=== PATIENT | female | born 1960 | race Caucasian/White ===

== ENCOUNTER 2023-12-03 14:09 | Outpatient (OUT) | payer OTHER, SELFPAY ==
--- NOTE | 2023-12-03 | XR_ITS ---
The [address] [address] Patient Name: MIKE HANNON MRN: [id number] date: 1960 Sex: F Assigned Patient Location: Current Patient Location: Accession/Order Number: [id number] Exam Date: 12/03/2023 14:18 Report Date: 12/04/2023 07:13 At the request of: ALFREDA MCCALL Procedure: XR foot LT min 3V PROCEDURE: XR foot LT min 3V COMPARISON: None. HISTORY: LEFT FOOT PAIN FINDINGS: BONES:Subacute complex intra-articular fracture identified at the base of the fifth metatarsal evidenced by bone resorption. Incomplete bony bridging. Moderate enthesopathic spurring of the calcaneus at the Achilles and plantar insertions. SOFT TISSUES:Negative. No visible soft tissue swelling. EFFUSION:None visible. OTHER: Results initiated through operations XR/XR foot LT min 3V IMPRESSION: Subacute complex intra-articular fracture base of the fifth metatarsal Electronically authenticated by: FIONA CANNON Date: 12/04/2023 07:13
== END 2023-12-03 14:10 | disposition home or self-care (01) ==
LOC: EC 14:15
PROVIDERS: PCP Student in an Organized Health Care Education/Training Program; Visit Provider Student in an Organized Health Care Education/Training Program
DX: S92.902A Unspecified fracture of left foot, initial encounter for closed fracture (principal); S92.355A Nondisplaced fracture of fifth metatarsal bone, left foot, initial encounter for closed fracture
CPT/HCPCS: 73630

== ENCOUNTER 2023-12-25 09:04 | Outpatient (OUT) | payer OTHER, SELFPAY ==
--- NOTE | 2023-12-25 | XR_ITS ---
The [address] [address] Patient Name: MIKE HANNON MRN: [id number] date: 1960 Sex: F Assigned Patient Location: Current Patient Location: Accession/Order Number: [id number] Exam Date: 12/25/2023 09:05 Report Date: 12/26/2023 07:59 At the request of: ELADIO JACINTO Procedure: XR foot LT min 3V PROCEDURE: XR foot LT min 3V HISTORY: LEFT FOOT PAIN COMPARISON: XR foot left 12/03/2023 FINDINGS: BONES:Transverse fracture through base of 5th metatarsal with intra-articular extension. Increased density of the fracture line suggesting early bone healing. SOFT TISSUES:No visible soft tissue swelling. EFFUSION:None visible. OTHER: Negative. XR/XR foot LT min 3V IMPRESSION: 1. Changes of early bone healing involving the mildly displaced 5th metatarsal fracture. Electronically authenticated by: CAROLINE VICTORIA Date: 12/26/2023 07:59
--- OUTSIDE RECORDS SUMMARY | 2023-12-25 09:14 | XMS_ITS | CCD ---
Author Organization [facility] Care Team Providers Care C 40A Crew Chief Name Role Phone Cl Mckeon Primary Care Provider [phone] BRENT ENRIQUEZ Referring CL Sandoval Primary Care Unavailable KATHRIN NEWTON Referring CL Sandoval Primary Care Unavailable BRENT ENRIQUEZ Referring CL Sandoval Primary Care Unavailable Allergies Allergy Classification Reported Allergen(s) Allergy Type Date of Onset Reaction(s) Facility HMG-CoA Reductase Inhibitors (statins) (2 sources) atorvastatin Drug Allergy 08-09-2014 Other (See Comments) [facility] Phone: (5 sources) atorvastatin Drug Allergy 08-09-2014 Other (See Comments) [facility] Phone: (5 sources) rosuvastatin Drug Allergy 08-09-2014 Other (See Comments) [facility] Phone: Medications Current Medications Medication Drug Class(es) Dates Sig (Normalized) Sig (Original) enalapril maleate 5 mg oral tablet (6 sources) Angiotensin Converting Enzyme Inhibitor Start: 02-19-2023 take 1 tablet by mouth once daily enalapril (VASOTEC) 5 MG tablet TAKE 1 TABLET BY MOUTH DAILY 90 tablet 3 02/19/2023 Active Start: 02-28-2022 take 1 tablet by ab th once daily enalapril (VASOTEC) 5 MG tablet Take 1 tablet by mouth daily 90 tablet 3 02/28/2022 Active Start: 08-26-2021 take 1 tablet by ab th once daily enalapril (VASOTEC) 5 MG tablet TAKE 1 TABLET BY MOUTH DAILY 90 tablet 1 08/26/2021 Active Start: 10-27-2019 take 1 tablet by ab th once daily enalapril (VASOTEC) 5 MG tablet Take 1 tablet by mouth daily 90 tablet 3 10/27/2019 Active Start: 04-16-2019 take 1 tablet by ab th once daily enalapril (VASOTEC) 5 MG tablet Take 1 tablet by mouth daily 90 tablet 3 04/16/2019 Active hydroCHLOROthiazide 12.5 mg oral capsule (2 sources) Thiazide Diuretic Start: 04-16-2019 take 1 capsule by mouth once daily in the morning hydrochlorothiazide (MICROZIDE) 12.5 MG capsule Take 1 capsule by mouth every morning 90 capsule 3 04/16/2019 Active levothyroxine sodium 0.15 mg oral tablet (6 sources) l-Thyroxine Start: 11-27-2022 take 1 tablet by mouth once daily levothyroxine (SYNTHROID) 150 MCG tablet TAKE 1 TABLET BY MOUTH DAILY 90 tablet 3 11/27/2022 Active Start: 05-20-2021 take 1 tablet by ab th once daily levothyroxine (SYNTHROID) 125 MCG tablet Take 1 tablet by mouth daily 90 tablet 3 05/20/2021 Active Start: 05-25-2020 take 1 tablet by ab th once daily levothyroxine (SYNTHROID) 125 MCG tablet Take 1 tablet by mouth daily 90 tablet 3 05/25/2020 Active Start: 04-26-2020 take 1 tablet by ab th once daily levothyroxine (SYNTHROID) 125 MCG tablet TAKE 1 TABLET BY MOUTH DAILY 30 tablet 0 04/26/2020 Active Start: 10-04-2018 take 1 tablet by ab th once daily levothyroxine (SYNTHROID) 150 MCG tablet Indications: Other specified hypothyroidism Take 1 tablet by mouth Daily 90 tablet 3 10/04/2018 Active rosuvastatin calcium 10 mg oral tablet (1 source) HMG-CoA Reductase Inhibitor Start: 08-28-2022 take 1 tablet by mouth once daily rosuvastatin (CRESTOR) 10 MG tablet Take 1 tablet by mouth daily 90 tablet 3 08/28/2022 Active Problems Active Problems Problem Classification Problem Date Documented Da te Episodic/Chronic Disorders of lipid metabolism (6 sources) Mixed hyperlipidemia; Translations: [Mixed hyperlipidemia] 04-20-2015 Chronic Essential hypertension (6 sources) Essential hypertension; Translations: [Essential (primary) hypertension] Onset: 04-20-2015 04-20-2015 Chronic Other connective tissue disease (3 sources) Pain in left foot; Translations: [Pain in left foot] Onset: 11-22-2023 Episodic Other connective tissue disease (3 sources) Achilles tendinitis, unspecified leg; Translations: [Achilles tendinitis, unspecified leg] Onset: 11-22-2023 Episodic Thyroid disorders (6 sources) Hypothyroidism; Translations: [Other specified hypothyroidism] Onset: 10-04-2018 10-04-2018 Chronic Unclassified (1 source) Cancer cervix screening status; Translations: [Screening for cervical cancer] Past or Other Problems Problem Classification Problem Date Documented Da te Episodic/Chronic Other screening for suspected conditions (not mental disorders or infectious disease) (8 sources) Patient encounter status; Translations: [Encounter for screening mammogram for malignant neoplasm of breast] Onset: 08-18-2016 Resolved: 03-06-2018 Episodic Other skin disorders (1 source) Skin tag; Translations: [Other hypertrophic disorders of the skin] Onset: 06-05-2023 Resolved: 06-18-2023 06-18-2023 Episodic Unclassified (5 sources) Patient encounter status; Translations: [Wellness examination] Onset: 03-17-2016 Resolved: 04-28-2018 04-28-2018 Results Test Name Value Interpretation Reference Range Facility XR FOOT LEFT (2 VIEWS)on XR FOOT LEFT (2 VIEWS) EXAMINATION: TWO XRAY VIEWS OF THE LEFT FOOT 11/22/2023 12:30 pm COMPARISON: None. HISTORY: ORDERING SYSTEM PROVIDED HISTORY: Left foot pain FINDINGS: There is fracture of the base of the 5th metatarsal. The joint spaces are maintained. There is soft tissue swelling. IMPRESSION: Fracture at the base of the 5th metatarsal. Interpreted by: Bhargav Abraham MD Signed by: Bhargav Abraham MD 11/26/23 Final result Normal [facility] JACQUE DIGITAL SCREEN DYLAN Pearce 12-14-2022 [facility] JACQUE DIGITAL SCREEN BILATERAL EXAMINATION: SCREENING DIGITAL BILATERAL MAMMOGRAM WITH TOMOSYNTHESIS, 12/13/2022 TECHNIQUE: Screening mammography was performed with tomosynthesis including MLO and CC views of the bilateral breasts. Computer aided detection was used for the interpretation of this exam. COMPARISON: October HISTORY: Screening. Negative family history of breast cancer. No hormone replacement therapy or breast interventions. FINDINGS: Breasts are composed of predominantly tissue. No skin thickening, nipple contour changes, suspicious calcifications, suspicious masses, areas of architectural distortion or significant interval changes are noted. IMPRESSION: No evidence of malignancy. Screening mammography. BI-RADS 1 BIRADS: BIRADS - CATEGORY 1 Negative, no evidence of malignancy. Normal interval follow-up is recommended in 12 months. OVERALL ASSESSMENT - NEGATIVE A letter of notification will be sent to the patient regarding the results. [employer] recommends annual mammograms for women 40 years and older. Interpreted by: Alta Alfaro MD Signed by: Alta Alfaro MD 12/14/22 Final result Normal [facility] No evidence of malignancy. Screening mammography. BI-RADS 1 BIRADS: BIRADS - CATEGORY 1 Negative, no evidence of malignancy. Normal interval follow-up is recommended in 12 months. OVERALL ASSESSMENT - NEGATIVE A letter of notification will be sent to the patient regarding the results. [employer] recommends annual mammograms for women 40 years and older. [facility] EXAMINATION: SCREENING DIGITAL BILATERAL MAMMOGRAM WITH TOMOSYNTHESIS, 12/13/2022 TECHNIQUE: Screening mammography was performed with tomosynthesis including MLO and CC views of the bilateral breasts. Computer aided detection was used for the interpretation of this exam. COMPARISON: October HISTORY: Screening. Negative family history of breast cancer. No hormone replacement therapy or breast interventions. FINDINGS: Breasts are composed of predominantly tissue. No skin thickening, nipple contour changes, suspicious calcifications, suspicious masses, areas of architectural distortion or significant interval changes are noted. [facility] JACQUE DIGITAL SCREEN BILA TERALOrdered By: Alta Alfaro on 12-14-2022 [facility] Work Phone: [facility] JACQUE DIGITAL SCREEN BILA TERALon 12-13-2022 Radiology Study observation (narrative) [facility] JACQUE DIGITAL SCREEN BILA TERALon 10-10-2021 No evidence of malignancy. Advise annual screening mammography. BI-RADS 1 BIRADS: BIRADS - CATEGORY 1 Negative, no evidence of malignancy. Normal interval follow-up is recommended in 12 months. OVERALL ASSESSMENT - NEGATIVE A letter of notification will be sent to the patient regarding the results. [employer] recommends annual mammograms for women 40 years and older. [facility] EXAMINATION: SCREENING DIGITAL BILATERAL MAMMOGRAM WITH TOMOSYNTHESIS, 10/10/2021 TECHNIQUE: Screening mammography was performed with tomosynthesis including MLO and CC views of the bilateral breasts. Computer aided detection was used for the interpretation of this exam. COMPARISON: 07 October 2020; 21 July 2019 HISTORY: Screening. Positive family history of breast cancer; maternal aunt at age 70. 3 year history of oral contraceptive usage. Negative history of hormonal replacement therapy. No prior breast interventions. FINDINGS: The breasts are composed of scattered fibroglandular densities. No skin thickening, nipple contour changes, malignant type microcalcifications , areas of architectural distortion, or significant interval changes are noted. [facility] Radiology Study observation (narrative) [facility] Phone: [facility] JACQUE DIGITAL SCREEN BILA TERALOrdered By: Alta Alfaro on 10-10-2021 [facility] Phone: [facility] JACQUE DIGITAL SCREEN BILA TERALOrdered By: Kathrin Newton on 10-07-2020 No mammographic evidence of malignancy. BIRADS: BIRADS - CATEGORY 1 Negative. Normal interval follow-up is recommended in 12 months. OVERALL ASSESSMENT - NEGATIVE A letter of notification will be sent to the patient regarding the results. [employer] recommends annual mammograms for women 40 years and older. [facility] Phone: EXAMINATION: SCREENING DIGITAL BILATERAL MAMMOGRAM WITH TOMOSYNTHESIS, 10/07/2020 TECHNIQUE: Screening mammography was performed with tomosynthesis including MLO and CC views of the bilateral breasts. Computer aided detection was used for the interpretation of this exam. COMPARISON: 21 July 2019, 08 May 2018, 15 April 2017, 11 August 2015, 17 June 2014, 02 June 2013 HISTORY: Screening. FINDINGS: There are scattered areas of fibroglandular density. No masses, suspicious calcifications, foci of architectural distortion or significant interval changes are detected. [facility] Phone: Ihsan, [facility] Incoming Radiant Results From [employer] - 10/07/2020 5:08 PM EDT EXAMINATION: SCREENING DIGITAL BILATERAL MAMMOGRAM WITH TOMOSYNTHESIS, 10/07/2020 TECHNIQUE: Screening mammography was performed with tomosynthesis including MLO and CC views of the bilateral breasts. Computer aided detection was used for the interpretation of this exam. COMPARISON: 21 July 2019, 08 May 2018, 15 April 2017, 11 August 2015, 17 June 2014, 02 June 2013 HISTORY: Screening. FINDINGS: There are scattered areas of fibroglandular density. No masses, suspicious calcifications, foci of architectural distortion or significant interval changes are detected. IMPRESSION: No mammographic evidence of malignancy. BIRADS: BIRADS - CATEGORY 1 Negative. Normal interval follow-up is recommended in 12 months. OVERALL ASSESSMENT - NEGATIVE A letter of notification will be sent to the patient regarding the results. [employer] recommends annual mammograms for women 40 years and older. [facility] Phone: TSHon 04-14-2020 TSH Qn 3.31 uIU/mL Normal 0.49-4.67 [facility] Comment on above: Result Comment: Perf ormed at [place] [address] Pathology [employer] [address] [place] [address] CLIA No. [id number] CAP Accreditation No. [id number] Demi Chef: Gailleo Villeda M.D. [facility] METABOLIC PANE WITH GFRon 01-30-2020 Albumin [Mass/Vol] 3.7 g/dL Normal 3.2-5.3 Pathol [employer] Comment on above: Result Comment: [place] [address] CLIA Number [id number] ----- ALK PHOS 57 U/L Normal 39-130 [facility] ALT [Catalytic activity/Vol] 14 U/L Normal 0-31 [facility] Anion gap [Moles/Vol] 11 mmol/L Normal 5-15 [facility] [employer] [facility] Comment on above: Result Comment: NEW REFERENCE RANGE AST-SGOT 20 U/L Normal 0-41 [facility] Bilirubin.direct [Mass/Vol] 0.6 mg/dL Normal 0.3-1.2 [facility] Calcium [Mass/Vol] 9.6 mg/dL Normal 8.5-10.5 [facility] Chloride [Moles/Vol] 109 mmol/L Normal 98-109 [facility] CO2 [Moles/Vol] 24 mmol/L Normal 22-32 [facility] Creatinine [Mass/Vol] 1.07 mg/dL High 0.40-1.00 [facility] Comment on above: Result Comment: METH OD TRACEABLE TO IDMS STANDARD GFR/1.73 sq M predicted among blacks MDRD (S/P/Bld) [Vol rate/Area] mL/min/{1.73_m2} Normal >59 [facility] GFR/1.73 sq M predicted among non-blacks MDRD (S/P/Bld) [Vol rate/Area] 53 mL/min/{1.73_m2} Low >59 [facility] Glucose [Mass/Vol] 92 mg/dL Normal 65-99 [facility] Potassium [Moles/Vol] 4.4 mmol/L Normal 3.5-5.0 [facility] Protein [Mass/Vol] 6.7 g/dL Normal 6.0-8.0 [facility] Sodium [Moles/Vol] 144 mmol/L Normal 134-146 [facility] Urea nitrogen [Mass/Vol] 25 mg/dL High 5-23 [facility] HEMOGLOBIN A1Con 01-30-2020 HbA1c (Bld) [Mass fraction] 5.4 % Normal 4.4-6.4 [facility] Comment on above: Result Comment: NOTE ADA Guidelines Result HgbA1c Normal : less than 5.7 % Prediabetes : 5.7 % to 6.4 % Diabetes : > 6.4 % Use with caution in patients with abnormal hemoglobin variants as the half-life of red blood cells and in vivo glycation rates are affected. HbA1c (Bld) [Mass fraction] 108 mg/dL Normal [facility] Comment on above: Result Comment: Perf ormed at [facility] [address] [facility] [place] [address] CLIA No. [id number] CAP Accreditation No. [id number] Demi Chef: Galileo Villeda M.D. LIPID PANEL WITH REFLEX TO D IRECT LDLon 01-30-2020 Cholesterol [Mass/Vol] 192 mg/dL Normal 150-200 [facility] Cholesterol in LDL/Cholesterol in HDL [Mass ratio] 3.7 High <3.5 [facility] Cholesterol.total/Cho lesterol in HDL [Mass ratio] 5.6 {ratio} High 1.0-5.0 [facility] Comment on above: Result Comment: Test performed at [facility] [address] [place] [address] CLIA Number [id number] ----- HDL-CHOL 34 mg/dL Low >39 [facility] Comment on above: Result Comment: HDL <40 mg/dL - High Risk HDL > or = 40mg/dL- Desirable HDL >60 mg/dL - Negative Risk LDL-CHOL, CALCULATED 126 mg/dL Normal <130 [facility] [employer] Comment on above: Result Comment: LDL <100 mg/dL - Desirable LDL >160 mg/dL - High Risk Triglyceride [Mass/Vol] 162 mg/dL High 27-150 [facility] VLDL-CHOL, CALCULATED 32 mg/dL High 0-30 [facility] [employer] [facility] [employer] TSHon 01-30-2020 TSH Qn 0.07 uIU/mL Low 0.49-4.67 [facility] Comment on above: Result Comment: Perf ormed at [facility] [address] [address] [facility] DIGITAL SCREEN SELF REFE RRAL W OR WO CAD BILATERALon 07-21-2019 No evidence of malignancy. Advise annual screening mammography. BI-RADS BIRADS: BIRADS - CATEGORY 1 Negative, no evidence of malignancy in either breast. OVERALL ASSESSMENT - NEGATIVE A letter of notification will be sent to the patient regarding the results. RECOMMENDATION: Routine bilateral annual screening mammography is recommended. Follow-up screening mammogram in 1 year is advised. [facility] Phone: EXAMINATION: BILATERAL DIGITAL SCREENING MAMMOGRAM, 07/21/2019 TECHNIQUE: CC and MLO views of the left and right breasts were obtained. Computer aided detection was utilized in the interpretation of this exam. 3D tomosynthesis images were obtained. COMPARISON: 08 May 2018; 15 April 2017; 11 August 2015 HISTORY: Screening. Positive family history of breast cancer; maternal aunt younger than age 50. Oral contraceptive usage x3 years. Negative history of hormonal replacement therapy. No prior breast interventions. FINDINGS: The breasts are composed of scattered fibroglandular densities. No skin thickening, nipple contour changes, malignant type microcalcifications , areas of architectural distortion, or significant interval changes are noted. [facility] Phone: Ihsan, [facility] Incoming Radiant Results From [employer] - 07/21/2019 6:23 PM EST EXAMINATION: BILATERAL DIGITAL SCREENING MAMMOGRAM, 07/21/2019 TECHNIQUE: CC and MLO views of the left and right breasts were obtained. Computer aided detection was utilized in the interpretation of this exam. 3D tomosynthesis images were obtained. COMPARISON: 08 May 2018; 15 April 2017; 11 August 2015 HISTORY: Screening. Positive family history of breast cancer; maternal aunt younger than age 50. Oral contraceptive usage x3 years. Negative history of hormonal replacement therapy. No prior breast interventions. FINDINGS: The breasts are composed of scattered fibroglandular densities. No skin thickening, nipple contour changes, malignant type microcalcifications , areas of architectural distortion, or significant interval changes are noted. IMPRESSION: No evidence of malignancy. Advise annual screening mammography. BI-RADS BIRADS: BIRADS - CATEGORY 1 Negative, no evidence of malignancy in either breast. OVERALL ASSESSMENT - NEGATIVE A letter of notification will be sent to the patient regarding the results. RECOMMENDATION: Routine bilateral annual screening mammography is recommended. Follow-up screening mammogram in 1 year is advised. [facility] Work Phone: Encounters Encounter Date Encounter Type Care Provider Facility Start: 11-22-2023 End: 11-24-2023 ambulatory BRENT ENRIQUEZ [facility] [place] [facility] al Start: 11-22-2023 End: 11-24-2023 Subsequent hospital visit by physician Cl Mckeon MD Work Phone: [facility] Radiology Start: 12-13-2022 End: 12-15-2022 ambulatory KATHRIN NEWTON [facility] [place] [facility] al Start: 12-13-2022 End: 12-15-2022 Subsequent hospital visit by physician [facility] Mammography Room At [facility] Mammography Comment on above: Screening mammogram, encounter for Start: 10-10-2021 End: 10-12-2021 Subsequent hospital visit by physician [facility] Mammography Room At [facility] Mammography Comment on above: Screening mammogram, encounter for Start: 05-16-2021 End: 06-15-2021 Patient encounter status [facility] Work Phone: Start: 10-07-2020 End: 10-09-2020 Subsequent hospital visit by physician [facility] Mammography Room At [facility] Mammography Comment on above: Screening mammogram, encounter for Start: 05-19-2020 End: 05-19-2020 Subsequent hospital visit by physician Cl Mckeon [facility] Laboratory Comment on above: Screening for cervic al cancer Start: 07-21-2019 End: 07-23-2019 Subsequent hospital visit by physician [facility] Mammography Comment on above: Breast cancer screen ing by mammogram Start: 03-17-2016 End: 04-28-2018 Patient encounter status [facility] Procedures Date Procedure Procedure Detail Performing Clinician Start: 12-13-2022 Screening mammograph y bi 2-view breast inc cad Kathrin Newton [employer] - CNM Work Phone: Start: 10-10-2021 Screening mammograph y bi 2-view breast inc cad Kathrin Newton [employer] - CNM Work Phone: Start: 05-24-2021 Microscopic observat ion [Identifier] in Cervix by Cyto stain [facility] Start: 10-07-2020 Screening mammograph y bi 2-view breast inc cad Kathrin Newton [employer] - CNM Work Phone: Start: 07-21-2019 Screening digital br east tomosynthesis bi Kathrin Newton Work Phone: Start: 09-11-2016 Colonoscopy [facility] Plan of Treatment Date Care Activity Detail Author Start: 06-05-2028 Lipid panel Lipids [facility] [employer] [facility] Start: 09-11-2026 Colon cancer screen colonoscopy Colon cancer screen colonoscopy [facility] Work Phone: Start: 09-11-2026 Screening for malign ant neoplasm of colon [facility] Start: 05-24-2026 Screening for malign ant neoplasm of cervix [facility] Start: 01-29-2025 Lipid panel [facility] Start: 12-13-2024 Screening for malign ant neoplasm of breast Breast cancer [email or web address] Start: 11-19-2024 Depression Screen Depression Screen [facility] Start: 08-12-2024 End: 08-12-2024 Patient encounter procedure 08/12/2024 2:45 PM EST Office Visit [facility] OBST[facility]ICS & [facility]YNECOLOGY [address] [place], [place] [id number] Kathrin Newton, [employer] - CNM [address] [place] [address] [address] [place] [address] PAP [facility] Comment on above: PAP Start: 06-20-2024 End: 06-20-2024 Patient encounter procedure 06/20/2024 10:40 AM EST Office Visit Cl Mckeon MD [address] [place] [address] [place] [id number] Cl Mckeon MD [address] [place] [address], [place] [address] ANNUAL WELLNESS Cl Mckeon MD Comment on above: ANNUAL WELLNESS Start: 05-24-2024 Screening for malign ant neoplasm of cervix Pap smear [facility] Start: 05-06-2024 DTaP/Tdap/Td vaccine (4 - Tdap) DTaP/Tdap/Td vaccine (4 - Tdap) [facility] Start: 04-08-2024 Lipid screen [facility] screen [facility] Work Phone: Start: 10-11-2023 Screening for malign ant neoplasm of breast Breast cancer screen [facility] Start: 07-17-2023 End: 07-17-2023 Patient encounter procedure 07/17/2023 Office Visit Obstetrics and Gynecology Kathrin Newton, [employer] - CNM [address] [facility] [address] [address] [facility]ECOLOGY [facility] Start: 05-27-2023 Lipid panel Lipids [facility] [employer] Start: 05-23-2023 End: 05-23-2023 Patient encounter procedure 05/23/2023 Office Visit Internal Medicine Cl Mckeon MD [address] [facility] [place] [address] Cl Mckeon MD Start: 05-19-2023 Depression Screen [facility] Start: 05-19-2023 Screening for malign ant neoplasm of cervix Cervical cancer screen [facility] Work Phone: Start: 02-09-2023 COVID-19 Vaccine ( season) COVID-19 Vaccine ( season) [facility] Start: 01-09-2023 Influenza vaccination Flu vaccine (# 1) [facility] [employer] [facility] Start: 10-07-2022 Screening for malign ant neoplasm of breast Breast cancer screen [facility] Work Phone: Start: 05-17-2022 End: 05-17-2022 Patient encounter procedure 05/17/2022 Office Visit Internal Medicine Cl Mckeon MD [address] [facility] [place] [address] Cl Mckeon MD Start: 08-10-2021 COVID-19 Vaccine (3 - Booster for Vicenta series) COVID-19 Vaccine (3 - Booster for Vicenta series) [facility] Start: 07-21-2021 Breast cancer screen Breast cancer s char [facility] Work Phone: Start: 07-21-2021 Depression Screen Depression Screen [facility] Start: 07-21-2021 Screening for malign ant neoplasm of breast Breast cancer screen [place] Start: 05-24-2021 End: 05-24-2021 Office Visit 05/24/2021 Office Visit Obstetrics and Gynecology Kathrin Newton APRN - [address] [place] [address] [id number] [facility] Start: 2021 Respiratory Syncytia l Virus (RSV) or age 60 yrs+ (1 - 1-dose 60+ series) Respiratory Syncytial Virus (RSV) or age 60 yrs+ (1 - 1-dose 60+ series) [facility] Start: 04-13-2021 Thyroid stimulating hormone measurement [facility] Start: 04-13-2021 TSH Qn TSH testing [place], [place] Start: 03-12-2021 Screening for malign ant neoplasm of cervix Cervical cancer screen [place], [place] Start: 01-29-2021 Creatinine measurement [facility] Start: 01-29-2021 Potassium [Moles/vol ume] in Serum or Plasma Potassium [facility] Start: 01-29-2021 Potassium monitoring [place], [place] Start: 01-26-2021 End: 01-26-2021 Patient encounter procedure 01/26/2021 Office Visit Internal Medicine Cl Mckeon MD [address] [place] [address], [facility] [address] [place], [place] [id number] Cl Mckeon MD Start: 07-21-2020 End: 07-21-2020 Office Visit 07/21/2020 Office Visit Internal Medicine Cl Mckeon MD [address] [place] [address], [place] [address] Cl Mckeon MD Start: 04-08-2020 Creatinine monitoring Creatinine mon itoring [facility] Work Phone: Start: 04-08-2020 Potassium monitoring Potassium monit henrryng [facility] Work Phone: Start: 04-08-2020 TSH testing TSH testing [facility] Work Phone: Start: 03-20-2020 Cervical cancer screen Cervical canc er screen [facility] Work Phone: Start: 02-10-2020 Influenza vaccination Flu vaccine (# 1) [place], [place] Start: 10-06-2019 End: 10-06-2019 Office Visit 10/06/2019 Office Visit Internal Medicine Cl Mckeon MD [address] [facility], [facility] [place] [address] Cl Mckeon MD Start: 2006 Screening for malign ant neoplasm of colon [facility] Start: 1977 COVID-19 Vaccine (1) COVID-19 Vaccin e (1) [facility] Work Phone: End: 05-19-2020 Cytopathology procedure, preparation of smear, genital source [facility] Routine Screening for cervical cancer 1 Occurrences starting 05/19/2020 until 05/19/2020 [place], [place] Comment on above: 1 Occurrences starti ng 05/19/2020 until 05/19/2020 Immunizations Immunization Date Immunization Notes Care Provider Fa [facility] 03-12-2023 influenza virus vaccine, unspecified formulation Cl Mckeon MD Work Phone: [facility] 03-12-2023 Influenza, injectabl e, Madin Shruti Canine Kidney, quadrivalent with preservative Cl Mckeon MD Work Phone: [facility] 03-11-2022 influenza virus vaccine, unspecified formulation [facility] 06-15-2021 COVID-19, Pfizer Pur ple top, DILUTE for use, 12+ yrs, 30mcg/0.3mL dose [facility] Phone: 03-16-2021 influenza virus vaccine, unspecified formulation [facility] Phone: 03-16-2021 influenza, seasonal, injectable [facility] 08-27-2020 COVID-19, J&J, PF, 0 .5 mL [facility] Phone: 03-16-2020 Influenza, injectabl e, Madin [place] Canine Kidney, preservative free, quadrivalent [facility] Phone: 07-03-2019 zoster vaccine recombinant [facility], [place] 05-01-2019 zoster vaccine recombinant [facility] 03-19-2019 seasonal influenza, intradermal, preservative free [facility] Phone: 02-27-2017 Influenza Vaccine, unspecified formulation [facility] 03-17-2016 influenza virus vaccine, unspecified formulation [facility] Phone: 03-13-2016 zoster vaccine, live [facility] 04-12-2015 influenza virus vaccine, unspecified formulation [facility] Phone: 05-06-2014 diphtheria, tetanus toxoids and acellular pertussis vaccine [facility] Phone: 04-24-2014 diphtheria and tetan us toxoids, adsorbed for pediatric use [facility] Phone: 04-13-2014 diphtheria and tetan us toxoids, adsorbed for pediatric use [facility] Phone: 04-03-2014 zoster vaccine, live [facility] Phone: 07-12-2013 zoster vaccine, live [facility] Phone: Payers Date Payer Category Payer Unknown [id number] 2014 Unknown [id number] 2014 Unknown [employer] xxxxxxxxx 2014-Present [phone] [address] [place] [address] xxxxxxxxx [id number] 1960 Unknown [id number] 1960 Unknown [id number] 1960 Unknown [id number] Social History Date Type Detail Facility Start: 05-19-2020 End: 02-28-2022 Tobacco smoking status NHIS Never smoker [facility] Phone: Start: 05-19-2020 End: 02-28-2022 Tobacco use and exposure Never used [employer] [place], [place] Start: 05-19-2020 End: 11-20-2023 Alcohol intake Current drinker of alcohol (finding) [facility] Phone: Start: 10-07-2019 End: 05-19-2022 History SDOH Financial 5 [facility] [employer] [place], [place] Start: 10-07-2019 End: 05-19-2022 History SDOH Food Worry 1 [facility] [place] Start: 10-07-2019 History SDOH Transpo rt Med 2 [facility] [place] Start: 03-20-2017 Alcohol Comment social [facility] Work Phone: Start: 1960 Sex Assigned At Not on file [facility] [employer] Work Phone: Start: 06-05-2023 End: 11-20-2023 History of Social function [place] Start: 06-05-2023 End: 11-20-2023 Tobacco use panel [place] How hard is it for y ou to pay for the very basics like food, housing, medical care, and heating Not hard at all [place] (I/We) worried naida er (my/our) food would run out before (I/we) got money to buy more. Never true [place] At any time in the p ast 12 months, were you homeless or living in long term [including now]? 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 ACP-Advance Directive ACP-Power of Security System Engineer Documents on File Type Date Recorded Patient 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 anation Advance Directives and Living Will Power of Security System Engineer Documents on File Type Date Recorded Patient 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 anation ACP-Advance Directive ACP-Power of Security System Engineer Assessments Diagnosis Screening for cervical cancer Screening for malignant neoplasm of the cervix Diagnosis Breast cancer screening by mammogram Reason for Referral Status Reason Specialty Diagnoses / Procedures Referre d By Contact Referred To Contact Closed Radiology Diagnoses Breast cancer screening by mammogram Procedures TOSIN DIGITAL SCREEN SELF REFERRAL W OR WO CAD Kathrin [place] APRN - [address] [place] [address] Status Reason Specialty Diagnoses / Procedures Referre d By Contact Referred To Contact Closed Radiology Diagnoses Screening mammogram, encounter for Procedures TOSIN JACQUE DIGITAL SCREEN Kathrin [place] APRN - [address] [place] [address] Specialty Diagnoses / Procedures Referred By Contac t Referred To Contact Radiology Diagnoses Screening mammogram, encounter for Procedures TOSIN JACQUE DIGITAL SCREEN BILATERAL Kathrin Newton APRN - [facility] [address] [place] [address] Referral ID Status Reason Start Date Expiration Date Visits Re quested Visits Authorized [id number] Closed 10/04/2021 10/04/2022 1 1 Referral ID Status Reason Start Date Expiration Date Visits Re quested Visits Authorized [id number] Closed 10/12/2022 10/12/2023 1 1 Additional Source Comments INFORMATION SOURCE (unrecogn ized section and content) DATE CREATED AUTHOR 04/14/2020 [facility] [facility] [employer] DATE CREATED AUTHOR AUTHOR'S ORGANIZ ATION 11/27/2023 Gracie sumner Reason for Visit (unrecogniz ed section and content) Status Reason Specialty Diagnoses / Procedures Referre d By Contact Referred To Contact Closed Radiology Diagnoses Breast cancer screening by mammogram Procedures TOSIN DIGITAL SCREEN SELF REFERRAL W OR WO CAD BILATERAL Kathrin Newton APRN [facility] [address] [place] [address] Status Reason Specialty Diagnoses / Procedures Referre d By Contact Referred To Contact Closed Radiology Diagnoses Screening mammogram, encounter for Procedures TOSIN JACQUE DIGITAL SCREEN BILATERAL Kathrin Newton APRN - [facility] [address] [place] [address] Specialty Diagnoses / Procedures Referred By Contac t Referred To Contact Radiology Diagnoses Screening mammogram, encounter for Procedures TOSIN JACQUE DIGITAL SCREEN BILATERAL Kathrin Newton APRN [facility] [address] [place] [address] Referral ID Status Reason Start Date Expiration Date Visits Re quested Visits Authorized [id number] Closed 10/04/2021 10/04/2022 1 1 Referral ID Status Reason Start Date Expiration Date Visits Re quested Visits Authorized [id number] Closed 10/12/2022 10/12/2023 1 1 Care Teams (unrecognized sec tion and content) C 40A Crew Chief Relationship Specialty Start Date End Date Cl Mckeon MD [address] [place] [address], [place] [address] PCP - General 05/07/12 C 40A Crew Chief Relationship Specialty Start Date End Date Cl Mckeon MD [address] [place] [address] PCP - General 05/07/12 C 40A Crew Chief Relationship Specialty Start Date End Date Cl Mckeon MD [address] [place] [place] [address] [facility] - General 05/07/12 FOR RECORDS PERTAINING TO PATIENTS WHO ARE OR HAVE BEEN ENROLLED IN A CHEMICAL DEPENDENCY/SUBSTANCEABUSE PROGRAM, SOME INFORMATION MAY BE OMITTED. This clinical summary was aggregated from multiple sources. Caution should be exercised in using it in the provision of clinical care. This summary normalizes information from multiple sources, and as a consequence, information in this document may materially change the coding, format and clinical context of patient data. In addition, data may be omitted in some cases. CLINICAL DECISIONS SHOULD BE BASED ON THE PRIMARY CLINICAL RECORDS. [facility] provides no warranty or guarantee of the accuracy or completeness of information in this document.
== END 2023-12-25 09:05 | disposition home or self-care (01) ==
LOC: EC 09:04
PROVIDERS: Visit Provider Podiatrist Foot & Ankle Surgery
DX: S92.352D Displaced fracture of fifth metatarsal bone, left foot, subsequent encounter for fracture with routine healing (principal)
CPT/HCPCS: 73630

== ENCOUNTER 2024-01-16 11:43 | Outpatient (OUT) | payer OTHER, SELFPAY ==
--- NOTE | 2024-01-16 | XR_ITS ---
The [address] [address] Patient Name: MIKE HANNON MRN: [id number] date: 1960 Sex: F Assigned Patient Location: Current Patient Location: Accession/Order Number: [id number] Exam Date: 01/16/2024 11:43 Report Date: 01/21/2024 07:21 At the request of: ELADIO JACINTO Procedure: XR foot LT min 3V PROCEDURE: XR foot LT min 3V COMPARISON: 12/25/2023 HISTORY: LEFT FOOT PAIN FINDINGS: BONES:Stable transverse intra-articular fracture base of the fifth metatarsal with no significant interval bony bridging. No new fracture or dislocation. Stable degenerative changes with mild to moderate enthesopathic spurring of the calcaneus SOFT TISSUES:Negative. No visible soft tissue swelling. EFFUSION:None visible. OTHER: Negative. XR/XR foot LT min 3V IMPRESSION: Stable transverse intra-articular fracture base of the fifth metatarsal with no interval bony bridging Electronically authenticated by: FIONA CANNON Date: 01/21/2024 07:21
--- OUTSIDE RECORDS SUMMARY | 2024-01-16 11:46 | XMS_ITS | CCD ---
Author Organization [facility] Care Team Providers Care Poultry Dresser Name Role Phone Cl Mckeon Primary Care Provider BRENT ENRIQUEZ Referring CL Sandoval Primary Care Unavailable KATHRIN NEWTON Attending KATHRIN Cochran Referring CL Sandoval Primary Care Unavailable BRENT ENRIQUEZ Referring CL Sandoval Primary Care Unavailable Allergies Allergy Classification Reported Allergen(s) Allergy Type Date of Onset Reaction(s) Facility HMG-CoA Reductase Inhibitors (statins) (2 sources) atorvastatin Drug Allergy 08-09-2014 Other (See Comments) [facility] Phone: (5 sources) atorvastatin Drug Allergy 08-09-2014 Other (See Comments) [facility] Phone: (5 sources) rosuvastatin Drug Allergy 08-09-2014 Other (See Comments) [facility] Phone: Medications Current Medications Medication Drug Class(es) [...] [Achilles tendinitis, unspecified leg] Onset: 11-22-2023 Episodic Other screening for suspected conditions (not mental disorders or infectious disease) (8 sources) Patient encounter status; Translations: [Encounter for screening mammogram for malignant neoplasm of breast] Onset: 08-18-2016 Resolved: 03-06-2018 Episodic Thyroid disorders (6 sources) Hypothyroidism; Translations: [Other specified hypothyroidism] Onset: 10-04-2018 10-04-2018 Chronic Unclassified (1 source) Cancer cervix screening status; Translations: [Screening for cervical cancer] Past or Other Problems Problem Classification Problem Date Documented Da te Episodic/Chronic Other skin disorders (1 source) Skin tag; Translations: [Other hypertrophic disorders of the skin] Onset: 06-05-2023 Resolved: 06-18-2023 06-18-2023 Episodic Unclassified (5 sources) Patient encounter status; Translations: [Wellness examination] Onset: 03-17-2016 Resolved: 04-28-2018 04-28-2018 Results Test Name Value Interpretation Reference Range Facility [facility] JACQUE DIGITAL SCREEN DYLAN Pearce 01-10-2024 [facility] JACQUE DIGITAL SCREEN BILATERAL EXAMINATION: SCREENING DIGITAL BILATERAL MAMMOGRAM WITH TOMOSYNTHESIS, 01/10/2024 TECHNIQUE: Screening mammography was performed with tomosynthesis including MLO and CC views of the bilateral breasts. Computer aided detection was used for the interpretation of this exam. COMPARISON: 13 December 2022; 10 Oct 2021 HISTORY: Screening. Positive family history of breast cancer; maternal aunt at 70. 6 year history of oral contraception. No hormonal replacement therapy or breast interventions. FINDINGS: Both breasts are composed of scattered fibroglandular density. No skin thickening, nipple contour changes, suspicious [...] to the patient regarding the results. [employer] recommends annual mammograms for women 40 years and older. Interpreted by: Alta Alfaro MD Signed by: Alta Alfaro MD 01/10/24 Final result Normal [facility] XR FOOT LEFT (2 VIEWS)on XR FOOT [...] Bhargav Abraham MD 11/26/23 Final result Normal [facility] JACQUE DIGITAL SCREEN BILA TERALon 12-14-2022 No evidence of malignancy. Screening mammography. BI-RADS 1 BIRADS: BIRADS - CATEGORY 1 Negative, no evidence of malignancy. Normal interval follow-up is recommended in 12 months. OVERALL ASSESSMENT - NEGATIVE A letter of notification will be sent to the patient regarding the results. [employer] recommends annual mammograms for women 40 years and older. [facility] EXAMINATION: SCREENING DIGITAL BILATERAL [...] distortion or significant interval changes are noted. [facility] JACQUE DIGITAL SCREEN BILA TERALOrdered By: Alta Alfaro on 12-14-2022 [facility] Work Phone: [facility] JACQUE DIGITAL SCREEN BILA TERALon 12-13-2022 Radiology Study observation (narrative) [facility] JACQUE DIGITAL SCREEN BILA TERALon 10-10-2021 No evidence of malignancy. Advise annual screening mammography. BI-RADS 1 BIRADS: BIRADS - CATEGORY 1 Negative, no evidence of malignancy. Normal interval follow-up is recommended in 12 months. OVERALL ASSESSMENT - NEGATIVE A letter of notification will be sent to the patient regarding the results. [employer] recommends annual mammograms for women 40 years and older. [facility] EXAMINATION: SCREENING DIGITAL BILATERAL [...] distortion, or significant interval changes are noted. [facility] Radiology Study observation (narrative) [facility] Phone: [facility] JACQUE DIGITAL SCREEN BILA TERALOrdered By: Alta Alfaro on 10-10-2021 [facility] Phone: [facility] JACQUE DIGITAL SCREEN BILA TERALOrdered By: Kathrin Newton on 10-07-2020 No mammographic evidence of malignancy. BIRADS: BIRADS - CATEGORY 1 Negative. Normal interval follow-up is recommended in 12 months. OVERALL ASSESSMENT - NEGATIVE A letter of notification will be sent to the patient regarding the results. [employer] recommends annual mammograms for women 40 years and older. [facility] Phone: EXAMINATION: SCREENING DIGITAL BILATERAL MAMMOGRAM WITH [...] distortion or significant interval changes are detected. [facility] Phone: Ihsan, [facility] Incoming Radiant Results From [employer] - 10/07/2020 5:08 PM EDT EXAMINATION: SCREENING [...] to the patient regarding the results. [employer] recommends annual mammograms for women 40 years and older. [facility] Phone: TSHon 04-14-2020 TSH Qn 3.31 uIU/mL Normal 0.49-4.67 [facility] Comment on above: Result Comment: Perf ormed at [place] [address] [facility] [address] [place] [address] CLIA No. [id number] CAP Accreditation No. [id number] Career Services Officer: Galileo Villeda M.D. COMPREHENSIVE METABOLIC PANE WITH GFRon 01-30-2020 Albumin [Mass/Vol] 3.7 g/dL Normal 3.2-5.3 [facility] Comment on above: Result Comment: [place] [address] CLIA Number [id number] ----- ALK PHOS 57 U/L Normal 39-130 [facility] ALT [Catalytic activity/Vol] 14 U/L Normal 0-31 [facility] Anion gap [Moles/Vol] 11 mmol/L Normal 5-15 [facility] Comment on above: Result Comment: NEW REFERENCE RANGE AST-SGOT 20 U/L Normal 0-41 [facility] Bilirubin.direct [Mass/Vol] 0.6 mg/dL Normal 0.3-1.2 [facility] Calcium [Mass/Vol] 9.6 mg/dL Normal 8.5-10.5 [facility] Chloride [Moles/Vol] 109 mmol/L Normal 98-109 Path [facility] CO2 [Moles/Vol] 24 mmol/L Normal 22-32 [facility] Creatinine [Mass/Vol] 1.07 mg/dL High 0.40-1.00 [facility] [employer] Comment on above: Result Comment: METH OD TRACEABLE TO IDMS STANDARD GFR/1.73 sq M predicted among blacks MDRD (S/P/Bld) [Vol rate/Area] mL/min/{1.73_m2} Normal >59 [facility] GFR/1.73 sq M predicted among non-blacks MDRD (S/P/Bld) [Vol rate/Area] 53 mL/min/{1.73_m2} Low >59 [facility] Glucose [Mass/Vol] 92 mg/dL Normal 65-99 [facility] Potassium [Moles/Vol] 4.4 mmol/L Normal 3.5-5.0 [facility] Protein [Mass/Vol] 6.7 g/dL Normal 6.0-8.0 [facility] Sodium [Moles/Vol] 144 mmol/L Normal 134-146 [facility] Urea nitrogen [Mass/Vol] 25 mg/dL High 5-23 [facility] HEMOGLOBIN A1Con 01-30-2020 HbA1c (Bld) [Mass fraction] 5.4 % Normal 4.4-6.4 [facility] Comment on above: Result Comment: NOTE [...] on above: Result Comment: Perf ormed at [place] [address] [facility] [address] [place] [address] CLIA No. [id number] CAP Accreditation No. [id number] Career Services Officer: Galileo Villeda M.D. LIPID PANEL WITH REFLEX TO D IRECT LDLon 01-30-2020 Cholesterol [Mass/Vol] 192 mg/dL Normal 150-200 [facility] Cholesterol in LDL/Cholesterol in HDL [Mass ratio] 3.7 High <3.5 [facility] Cholesterol.total/Cho lesterol in HDL [Mass ratio] 5.6 {ratio} High 1.0-5.0 [facility] Comment on above: Result Comment: Test performed at [place] [id number] CLIA Number [id number] ----- HDL-CHOL 34 mg/dL Low >39 [facility] Comment on above: Result Comment: HDL <40 mg/dL - High Risk HDL > or = 40mg/dL- Desirable HDL >60 mg/dL - Negative Risk LDL-CHOL, CALCULATED 126 mg/dL Normal <130 [facility] Comment on above: Result Comment: LDL <100 mg/dL - Desirable LDL >160 mg/dL - High Risk Triglyceride [Mass/Vol] 162 mg/dL High 27-150 [facility] VLDL-CHOL, CALCULATED 32 mg/dL High 0-30 [facility] TSHon 01-30-2020 TSH Qn 0.07 uIU/mL Low 0.49-4.67 [facility] Comment on above: Result Comment: Perf ormed at [facility] [address] [address] [facility] DIGITAL SCREEN SELF REFE RRAL W [...] screening mammogram in 1 year is advised. [facility] Phone: EXAMINATION: BILATERAL DIGITAL SCREENING MAMMOGRAM, 07/21/2019 [...] distortion, or significant interval changes are noted. [facility] Phone: Ihsan, bimal Incoming Radiant Results From [employer] - 07/21/2019 6:23 PM EST EXAMINATION: BILATERAL [...] screening mammogram in 1 year is advised. [facility] Phone: Encounters Encounter Date Encounter Type Care Provider Facility Start: 01-10-2024 End: 01-12-2024 ambulatory KATHRIN NEWTON [facility] al Start: 11-22-2023 End: 11-24-2023 ambulatory BRENT GILL ZOE [facility] al Start: 11-22-2023 End: 11-24-2023 Subsequent hospital visit by physician Cl Mckeon MD Work Phone: [facility] Start: 12-13-2022 End: 12-15-2022 Subsequent hospital visit by physician [facility] Mammography Room At [facility] Mammography Comment on above: Screening mammogram, encounter for Start: 10-10-2021 End: 10-12-2021 Subsequent hospital visit by physician [facility] Mammography Room At [facility] Mammography Comment on above: Screening mammogram, encounter for Start: 05-16-2021 End: 06-15-2021 Patient encounter status [facility] Phone: Start: 10-07-2020 End: 10-09-2020 Subsequent hospital visit by physician [facility] Mammography Room At [facility] Mammography Comment on above: Screening mammogram, encounter for Start: 05-19-2020 End: 05-19-2020 Subsequent hospital visit by physician Cl Mckeon [facility] Laboratory Comment on above: Screening for cervic al cancer Start: 07-21-2019 End: 07-23-2019 Subsequent hospital visit by physician [facility] Mammography Comment on above: Breast cancer screen ing by mammogram Start: 03-17-2016 End: 04-28-2018 Patient encounter status [facility] Procedures Date Procedure Procedure Detail Performing Clinician Start: 12-13-2022 Screening mammograph y bi 2-view breast inc cad Kathrin Newton [employer] MAKER - CNM Work Phone: Start: 10-10-2021 Screening mammograph y bi 2-view breast inc cad Kathrin Newton [employer] R[employer] MAKER - CNM Work Phone: Start: 05-24-2021 Microscopic observat ion [Identifier] in Cervix by Cyto stain [facility] Start: 10-07-2020 Screening mammograph y bi 2-view breast inc cad Kathrin Newton [employer] R[employer] MAKER - CNM Work Phone: Start: 07-21-2019 Screening digital br east tomosynthesis bi Kathrinmanuel Newton Work Phone: Start: 09-11-2016 Colonoscopy [facility] Plan of Treatment Date Care Activity Detail Author Start: 06-05-2028 [facility]id [facility] Start: 09-11-2026 Colon cancer screen colonoscopy Colon cancer screen colonoscopy [facility] Work Phone: Start: 09-11-2026 Screening for malign ant neoplasm of colon [facility] Start: 05-24-2026 Screening for malign ant neoplasm of cervix [facility] Start: 01-29-2025 Lipid panel [facility] Start: 12-13-2024 Screening for malign ant neoplasm of breast Breast cancer screen [facility] Start: 11-19-2024 Depression Screen Depression Screen [facility] Start: 08-12-2024 End: 08-12-2024 Patient encounter procedure 08/12/2024 2:45 PM EST Office Visit [facility] OBST[facility]RICS [facility] GYNECOLOGY [address] [place] [id number] Kathrin Newton, FISH ROD MAKER - CNM [address] [place] [address] [address] [place] [address] PAP [facility] OBSTETRICS [facility] GYNECOLOGY Part [facility] Comment on above: PAP Start: 06-20-2024 End: 06-20-2024 Patient encounter procedure 06/20/2024 10:40 AM EST Office Visit Cl Mckeon MD [address] [place] [address] Cl Mckeon MD [address] [facility], [place] [address] ANNUAL WELLNESS Cl Mckeon MD Comment on above: ANNUAL WELLNESS Start: 05-24-2024 Screening for malign ant neoplasm of cervix Pap smear [facility] Start: 05-06-2024 DTaP/Tdap/Td vaccine (4 - Tdap) DTaP/Tdap/Td vaccine (4 - Tdap) [facility] Start: 04-08-2024 Lipid screen [facility] Work Phone: Start: 10-11-2023 Screening for malign ant neoplasm of breast Breast cancer screen [facility] Start: 07-17-2023 End: 07-17-2023 Patient encounter procedure 07/17/2023 Office Visit Obstetrics and Gynecology Kathrin Newton, FISH ROD MAKER - CN [address] [facility] [address] [place] [address] [facility] OBSTETRICS [facility] GYNECOLOGY Part [facility] Start: 05-27-2023 Lipid panel Lipids [facility] [employer] Start: 05-23-2023 End: 05-23-2023 Patient encounter procedure 05/23/2023 Office Visit Internal Medicine Cl Mckeon MD [address] [facility], [place] [address] Cl Mckeon MD Start: 05-19-2023 Depression Screen Depression Screen [facility] [employer] Start: 05-19-2023 Screening for malign ant neoplasm of cervix Cervical cancer screen [employer] Work Phone: Start: 02-09-2023 COVID-19 Vaccine ( season) COVID-19 Vaccine ( season) [facility] Start: 01-09-2023 Influenza vaccination Flu vaccine (# 1) [facility] [employer] Start: 10-07-2022 Screening for malign ant neoplasm of breast Breast cancer screen [employer] Work Phone: Start: 05-17-2022 End: 05-17-2022 Patient encounter procedure 05/17/2022 Office Visit Internal Medicine Cl Mckeon MD [address] [facility], [facility] [place] [address] Cl Mckeon MD Start: 08-10-2021 COVID-19 Vaccine (3 - Booster for Vicenta series) COVID-19 Vaccine (3 - Booster for Vicenta series) [facility] Start: 07-21-2021 Breast cancer screen Breast cancer s char [facility] Work Phone: Start: 07-21-2021 Depression Screen Depression Screen [facility] Start: 07-21-2021 Screening for malign ant neoplasm of breast Breast cancer screen [place], [place] Start: 05-24-2021 End: 05-24-2021 Office Visit 05/24/2021 Office Visit Obstetrics and Gynecology Kathrin Newton, VANESA - PAULINE [address] [facility] [address] [place] [address] OBSTETRICS & GYNECOLOGY Start: 2021 Respiratory Syncytia l Virus (RSV) or age 60 yrs+ (1 - 1-dose 60+ series) Respiratory Syncytial Virus (RSV) or age 60 yrs+ (1 - 1-dose 60+ series) [facility] Start: 04-13-2021 Thyroid stimulating hormone measurement [facility] Start: 04-13-2021 TSH Qn TSH testing [place], [place] Start: 03-12-2021 Screening for malign ant neoplasm of cervix Cervical cancer screen [place], [place] Start: 01-29-2021 Creatinine measurement [facility] Start: 01-29-2021 Potassium [Moles/vol ume] in Serum or Plasma Potassium [facility] Start: 01-29-2021 Potassium [facility] [place] [place] Start: 01-26-2021 End: 01-26-2021 Patient encounter procedure 01/26/2021 Office Visit Internal Medicine Cl Mckeon MD [address] [facility], [place] [address] Cl Mckeon MD Start: 07-21-2020 End: 07-21-2020 Office Visit 07/21/2020 Office Visit Internal Medicine Cl Mckeon MD [address] [facility], [facility] [place] [address] Cl Mckeon MD Start: 04-08-2020 Creatinine monitoring Creatinine mon itoring [facility] Work Phone: Start: 04-08-2020 Potassium monitoring Potassium monit oring [facility] Work Phone: Start: 04-08-2020 TSH testing TSH testing [facility] Work Phone: Start: 03-20-2020 Cervical cancer screen Cervical canc er screen [facility] Work Phone: Start: 02-10-2020 Influenza vaccination Flu vaccine (# 1) [facility] [place] Start: 10-06-2019 End: 10-06-2019 Office Visit 10/06/2019 Office Visit Internal Medicine Cl Mckeon MD [address] [place] [address], [facility] [place] [address] Cl Mckeon MD Start: 2006 Screening for malign ant neoplasm of colon [facility] Start: 1977 COVID-19 Vaccine (1) COVID-19 Vaccin e (1) [facility] Work Phone: End: 05-19-2020 Cytopathology procedure, preparation of smear, genital source [facility] Routine Screening for cervical cancer 1 Occurrences starting 05/19/2020 until 05/19/2020 [facility] [place] Comment on above: 1 Occurrences starti ng 05/19/2020 until 05/19/2020 Immunizations Immunization Date Immunization Notes Care Provider Fa cili 03-12-2023 influenza virus vaccine, unspecified formulation Cl Mckeon MD Work Phone: [facility] [employer] [facility] [employer] 03-12-2023 Influenza, injectabl e, Madin [place] Canine Kidney, quadrivalent with preservative Cl Mckeon MD Work Phone: [facility] 03-11-2022 influenza virus vaccine, unspecified formulation [facility] 06-15-2021 COVID-19, Pfizer Pur ple top, DILUTE for use, 12+ yrs, 30mcg/0.3mL dose [facility] Phone: 03-16-2021 influenza virus vaccine, unspecified formulation [facility] Phone: 03-16-2021 influenza, seasonal, injectable [facility] 08-27-2020 COVID-19, J&J, PF, 0 .5 mL [facility] Phone: 03-16-2020 Influenza, injectabl e, Madin Shruti Canine Kidney, preservative free, quadrivalent [facility] Phone: 07-03-2019 zoster vaccine recombinant [facility], [place] 05-01-2019 zoster vaccine recombinant [facility] [place] 03-19-2019 seasonal influenza, intradermal, preservative free [facility] Phone: 02-27-2017 Influenza Vaccine, unspecified formulation [facility] 03-17-2016 influenza virus vaccine, unspecified formulation [facility] Phone: 03-13-2016 zoster vaccine, live [facility] 04-12-2015 influenza virus vaccine, unspecified formulation [facility] Phone: 05-06-2014 diphtheria, tetanus toxoids and acellular pertussis vaccine [facility] Phone: 04-24-2014 diphtheria and tetan us toxoids, adsorbed for pediatric use [facility] Phone: 04-13-2014 diphtheria and tetan us toxoids, adsorbed for pediatric use [facility] Phone: 04-03-2014 zoster vaccine, live [facility] Phone: 07-12-2013 zoster vaccine, live [facility] Work Phone: Payers Date Payer Category Payer Unknown [id number] 2014 Unknown [id number] 2014 Unknown [employer] xxxxxxxxx 2014-Present [phone] [address] [place] [address] xxxxxxxxx [id number] 1961 Unknown [id number] 3 1961 Unknown [id number] 3 1961 Unknown [id number] Social History Date Type Detail Facility Start: 05-19-2020 End: 02-28-2022 Tobacco smoking status NHIS Never smoker [employer] Phone: Start: 05-19-2020 End: 02-28-2022 Tobacco use and exposure Never used [employer] AJ Lewis Start: 05-19-2020 End: 11-20-2023 Alcohol intake Current drinker of alcohol (finding) [employer] Phone: Start: 10-07-2019 End: 05-19-2022 History SDOH Financial 5 [employer] [facility] Start: 10-07-2019 End: 05-19-2022 History SDOH Food Worry 1 [employer] [place] AJ Start: 10-07-2019 History SDOH Transpo rt Med 2 [employer] [facility] Start: 03-20-2017 Alcohol Comment social [facility] Work Phone: Start: 1960 Sex Assigned At Not on file [facility] [employer] Phone: Start: 06-05-2023 End: 11-20-2023 History of Social function [employer] Start: 06-05-2023 End: 11-20-2023 Tobacco use panel [employer] How hard is it for y ou to pay for the very basics like food, housing, medical care, and heating Not hard at all [employer] (I/We) worried wheth er (my/our) food would run out before (I/we) got money to buy more. Never true [employer] At any time in the p ast 12 months, were you homeless or living in senior living [including now]? No [employer] Evaluation note Note Date & Type Note Facility Evaluation note Diagnosis Screening mammogram, encounter for documented in this encounter [facility] Phone: Evaluation note Note Date & Type Note Facility Evaluation note Diagnosis Screening mammogram, encounter for documented in this encounter [employer] Phone: Summary Purpose Family History No Family History Records FoundNo Family History Records Found Advance Directives No Advanced Directives Records FoundDocuments on File Type Date Recorded Patient Director Of Community Life Expl anation ACP-Advance Directive ACP-Power of Risk Control Director Documents on File Type Date Recorded Patient Director Of Community Life Expl anation Advance Directives and Living Will Power of Risk Control Director Documents on File Type Date Recorded Patient Director Of Community Life Expl anation ACP-Advance Directive ACP-Power of Risk Control Director Assessments Diagnosis Screening for cervical cancer Screening for malignant neoplasm of the cervix Diagnosis Breast cancer screening by mammogram Reason for Referral Status Reason Specialty Diagnoses / Procedures Referre d By Contact Referred To Contact Closed Radiology Diagnoses Breast cancer screening by mammogram Procedures TOSIN DIGITAL SCREEN SELF REFERRAL W OR WO CAD Kathrin [place] APRN - CNM [address] [place] [address] [address] [place] [address] Status Reason Specialty Diagnoses / Procedures Referre d By Contact Referred To Contact Closed Radiology Diagnoses Screening mammogram, encounter for Procedures TOSIN JACQUE DIGITAL SCREEN Kathrin [place] APRN - CNM [address] [facility] [address] [place] [address] Specialty Diagnoses / Procedures Referred By Contac t Referred To Contact Radiology Diagnoses Screening mammogram, encounter for Procedures TOSIN JACQUE DIGITAL SCREEN BILATERAL Kathrin [place] APRN - CNM [address] [facility] [address] [place] [address] Referral ID Status Reason Start Date Expiration Date Visits Re quested Visits Authorized [id number] Closed 10/04/2021 10/04/2022 1 1 Referral ID Status Reason Start Date Expiration Date Visits Re quested Visits Authorized [id number] Closed 10/12/2022 10/12/2023 1 1 Additional Source Comments INFORMATION SOURCE (unrecogn ized section and content) DATE CREATED AUTHOR 04/14/2020 [facility] DATE CREATED AUTHOR AUTHOR'S ORGANIZ ATION 01/13/2024 [facility] Reason for Visit (unrecogniz ed section and content) Status Reason Specialty Diagnoses / Procedures Referre d By Contact Referred To Contact Closed Radiology Diagnoses Breast cancer screening by mammogram Procedures TOSIN DIGITAL SCREEN SELF REFERRAL W OR WO CAD BILATERAL Kathrin Newton APRN - CNM [address] [facility] [address] [place] [address] Status Reason Specialty Diagnoses / Procedures Referre d By Contact Referred To Contact Closed Radiology Diagnoses Screening mammogram, encounter for Procedures TOSIN JACQUE DIGITAL SCREEN BILATERAL Kathrin Newton APRN - CNM [address] [facility] [place] [address] Specialty Diagnoses / Procedures Referred By Contac t Referred To Contact Radiology Diagnoses Screening mammogram, encounter for Procedures TOSIN JACQUE DIGITAL SCREEN BILATERAL Kathrin Newton APRN - CNM [address] [facility] [address] [place] [address] Referral ID Status Reason Start Date Expiration Date Visits Re quested Visits Authorized [id number] Closed 10/04/2021 10/04/2022 1 1 Referral ID Status Reason Start Date Expiration Date Visits Re quested Visits Authorized [id number] Closed 10/12/2022 10/12/2023 1 1 Care Teams (unrecognized sec tion and content) Poultry Dresser Relationship Specialty Start Date End Date Cl Mckeon MD [address] [facility], [facility] [place] [address] PCP - General 05/07/12 Poultry Dresser Relationship Specialty Start Date End Date Cl Mckeon MD [address] [facility], [facility] [place] [address] PCP - General 05/07/12 Poultry Dresser Relationship Specialty Start Date End Date Cl Mckeon MD [address] [facility], [facility] [place] [address] PCP - General 05/07/12 FOR RECORDS PERTAINING TO [...] BE BASED ON THE PRIMARY CLINICAL RECORDS. [facility], [facility]. provides no warranty or guarantee of the accuracy or completeness of information in this document.
== END 2024-01-16 11:44 | disposition home or self-care (01) ==
LOC: EC 11:43
PROVIDERS: Visit Provider Podiatrist Foot & Ankle Surgery
DX: S92.352D Displaced fracture of fifth metatarsal bone, left foot, subsequent encounter for fracture with routine healing (principal)
CPT/HCPCS: 73630

== ENCOUNTER 2024-02-19 10:24 | Outpatient (OUT) | payer OTHER, SELFPAY ==
--- NOTE | 2024-02-19 | XR_ITS ---
The [address] [address] Patient Name: MIKE HANNON MRN: [id number] date: 1960 Sex: F Assigned Patient Location: Current Patient Location: Accession/Order Number: [id number] Exam Date: 02/19/2024 10:30 Report Date: 02/20/2024 09:47 At the request of: ELADIO JACINTO Procedure: XR foot LT min 3V PROCEDURE: XR foot LT min 3V HISTORY: LEFT FOOT PAIN ; 5th metatarsal fracture COMPARISON: XR foot left 01/16/2024 through 12/03/2023 FINDINGS: BONES:Prior fracture through base of 5th metatarsal which is stable alignment, but there persists a 3 mm gap without appreciable osseous bridging. Calcaneal plantar spur. SOFT TISSUES:No visible soft tissue swelling. EFFUSION:None visible. OTHER: Negative. XR/XR foot LT min 3V IMPRESSION: 1. Remote osseous fracture and mild separation involving base of 5th metatarsal without appreciable osseous bridging/fusion. 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 Electronically authenticated by: CAROLINE VICTORIA Date: 02/20/2024 09:47
--- OUTSIDE RECORDS SUMMARY | 2024-02-19 10:45 | XMS_ITS | CCD ---
Author Organization [facility] Care Team Providers Care Shop Tech Name Role Phone Cl Mckeon Primary Care Provider BRENT ENRIQUEZ Referring CL Sandoval Primary Care Unavailable KATHRIN NEWTON Attending KATHRIN Cochran Referring CL Sandoval Primary Care Unavailable BRENT ENRIQUEZ Referring CL Sandoval Primary Care Unavailable Allergies Allergy Classification Reported Allergen(s) Allergy Type Date of Onset Reaction(s) Facility HMG-CoA Reductase Inhibitors (statins) (2 sources) atorvastatin Drug Allergy 08-09-2014 Other (See Comments) [facility] Phone: (5 sources) atorvastatin Drug Allergy 08-09-2014 Other (See Comments) [facility] Phone: (5 sources) rosuvastatin Drug Allergy 08-09-2014 Other (See Comments) [employer] [facility] Phone: Medications Current Medications Medication Drug Class(es) [...] Test Name Value Interpretation Reference Range Facility [facility] JACQUE DIGITAL SCREEN DYLAN Pearce 01-10-2024 [facility] JAQCUE DIGITAL SCREEN BILATERAL EXAMINATION: SCREENING DIGITAL BILATERAL [...] to the patient regarding the results. [employer] recommends annual mammograms for women 40 years and older. Interpreted by: Alta Alfaro MD Signed by: Alta Alfaro MD 01/10/24 Final result Normal [facility] XR FOOT LEFT (2 VIEWS)on XR FOOT [...] Bhargav Abraham MD 11/26/23 Final result Normal [facility] JACQUE DIGITAL SCREEN BILA TERALon 12-14-2022 No evidence of malignancy. Screening mammography. BI-RADS 1 BIRADS: BIRADS - CATEGORY 1 Negative, no evidence of malignancy. Normal interval follow-up is recommended in 12 months. OVERALL ASSESSMENT - NEGATIVE A letter of notification will be sent to the patient regarding the results. [employer] recommends annual mammograms for women 40 years and older. [facility] EXAMINATION: SCREENING DIGITAL BILATERAL [...] distortion or significant interval changes are noted. [facility] JACQUE DIGITAL SCREEN BILA TERALOrdered By: Alta Alfaro on 12-14-2022 [facility] Work Phone: [facility] JACQUE DIGITAL SCREEN BILA TERALon 12-13-2022 Radiology Study observation (narrative) [facility] JACQUE DIGITAL SCREEN BILA TERALon 10-10-2021 No evidence of malignancy. Advise annual screening mammography. BI-RADS 1 BIRADS: BIRADS - CATEGORY 1 Negative, no evidence of malignancy. Normal interval follow-up is recommended in 12 months. OVERALL ASSESSMENT - NEGATIVE A letter of notification will be sent to the patient regarding the results. [employer] recommends annual mammograms for women 40 years and older. [facility] EXAMINATION: SCREENING DIGITAL BILATERAL [...] distortion, or significant interval changes are noted. [facility] Radiology Study observation (narrative) [employer] Phone: [facility] JACQUE DIGITAL SCREEN BILA TERALOrdered By: Alta Alfaro on 10-10-2021 [employer] [facility] Phone: [facility] JACQUE DIGITAL SCREEN BILA TERALOrdered By: Kathrin Newton on 10-07-2020 No mammographic evidence of malignancy. BIRADS: BIRADS - CATEGORY 1 Negative. Normal interval follow-up is recommended in 12 months. OVERALL ASSESSMENT - NEGATIVE A letter of notification will be sent to the patient regarding the results. [employer] recommends annual mammograms for women 40 years and older. [employer] Phone: EXAMINATION: SCREENING DIGITAL BILATERAL MAMMOGRAM WITH [...] distortion or significant interval changes are detected. [employer] Phone: Ihsan, [facility] Incoming Radiant Results From [employer] - 10/07/2020 5:08 PM EDT EXAMINATION: SCREENING [...] to the patient regarding the results. [employer] recommends annual mammograms for women 40 years and older. [employer] Phone: TSHon 04-14-2020 TSH Qn 3.31 uIU/mL Normal 0.49-4.67 [facility] Comment on above: Result Comment: Perf ormed at [place] [address] [facility] [address] [place] [address] CLIA No. [id number] CAP Accreditation No. [id number] Quality Control Chemist: Galileo Villeda M.D. COMPREHENSIVE METABOLIC PANE WITH GFRon 01-30-2020 Albumin [Mass/Vol] 3.7 g/dL Normal 3.2-5.3 [facility] Comment on above: Result Comment: [place] [address] CLIA Number [id number] ----- ALK PHOS 57 U/L Normal 39-130 [facility] ALT [Catalytic activity/Vol] 14 U/L Normal 0-31 [facility] Anion gap [Moles/Vol] 11 mmol/L Normal 5-15 [facility] Comment on above: Result Comment: NEW REFERENCE RANGE AST-SGOT 20 U/L Normal 0-41 [facility] Bilirubin.direct [Mass/Vol] 0.6 mg/dL Normal 0.3-1.2 [facility] Calcium [Mass/Vol] 9.6 mg/dL Normal 8.5-10.5 [facility] Chloride [Moles/Vol] 109 mmol/L Normal 98-109 Path ology [facility] CO2 [Moles/Vol] 24 mmol/L Normal 22-32 [facility] Creatinine [Mass/Vol] 1.07 mg/dL High 0.40-1.00 [facility] Comment on above: Result Comment: METH OD TRACEABLE TO IDMS STANDARD GFR/1.73 sq M predicted among blacks MDRD (S/P/Bld) [Vol rate/Area] mL/min/{1.73_m2} Normal >59 [facility] GFR/1.73 sq M predicted among non-blacks MDRD (S/P/Bld) [Vol rate/Area] 53 mL/min/{1.73_m2} Low >59 [facility] Glucose [Mass/Vol] 92 mg/dL Normal 65-99 [facility] Potassium [Moles/Vol] 4.4 mmol/L Normal 3.5-5.0 [facility] Protein [Mass/Vol] 6.7 g/dL Normal 6.0-8.0 [facility] Sodium [Moles/Vol] 144 mmol/L Normal 134-146 [facility] Urea nitrogen [Mass/Vol] 25 mg/dL High 5-23 [facility] HEMOGLOBIN A1Con 01-30-2020 HbA1c (Bld) [Mass fraction] 5.4 % Normal 4.4-6.4 [facility] Comment on above: Result Comment: NOTE [...] on above: Result Comment: Perf ormed at [place] [address] [facility] [address] [place] [address] CLIA No. [id number] CAP Accreditation No. [id number] Quality Control Chemist: Galileo Villeda M.D. LIPID PANEL WITH REFLEX TO D IRECT LDLon 01-30-2020 Cholesterol [Mass/Vol] 192 mg/dL Normal 150-200 [facility] Cholesterol in LDL/Cholesterol in HDL [Mass ratio] 3.7 High <3.5 [facility] Cholesterol.total/Cho lesterol in HDL [Mass ratio] 5.6 {ratio} High 1.0-5.0 [facility] Comment on above: Result Comment: Test performed at [place] [id number] CLIA Number [id number] ----- HDL-CHOL 34 mg/dL Low >39 [facility] Comment on above: Result Comment: HDL <40 mg/dL - High Risk HDL > or = 40mg/dL- Desirable HDL >60 mg/dL - Negative Risk LDL-CHOL, CALCULATED 126 mg/dL Normal <130 [facility] Comment on above: Result Comment: LDL <100 mg/dL - Desirable LDL >160 mg/dL - High Risk Triglyceride [Mass/Vol] 162 mg/dL High 27-150 [facility] VLDL-CHOL, CALCULATED 32 mg/dL High 0-30 [facility] TSHon 01-30-2020 TSH Qn 0.07 uIU/mL Low 0.49-4.67 [facility] Comment on above: Result Comment: Perf ormed at [facility] [address] [address] [facility] DIGITAL SCREEN SELF REFE RRAL W OR [...] screening mammogram in 1 year is advised. [employer] [facility] [employer] Phone: EXAMINATION: BILATERAL DIGITAL SCREENING MAMMOGRAM, 07/21/2019 [...] distortion, or significant interval changes are noted. [employer] [facility] Phone: Ihsan, bimal Incoming Radiant Results From [employer] - 07/21/2019 6:23 PM EST EXAMINATION: BILATERAL [...] screening mammogram in 1 year is advised. [employer] Phone: Encounters Encounter Date Encounter Type Care Provider Facility Start: 01-10-2024 End: 01-12-2024 ambulatory KATHRIN NEWTON [facility] Start: 11-22-2023 End: 11-24-2023 ambulatory BRENT GILL ZOE [facility] Start: 11-22-2023 End: 11-24-2023 Subsequent hospital visit by physician Cl Mckeon MD Work Phone: [facility] Start: 12-13-2022 End: 12-15-2022 Subsequent hospital visit by physician [facility] Mammography Comment on above: Screening mammogram, encounter for Start: 10-10-2021 End: 10-12-2021 Subsequent hospital visit by physician [facility] Mamm[facility] Mammography Comment on above: Screening mammogram, encounter for Start: 05-16-2021 End: 06-15-[address] [facility] [employer] Phone: Start: 10-07-2020 End: 10-09-2020 Subsequent hospital visit by physician [facility] Mammography [facility] Mammography Comment on above: Screening mammogram, encounter for Start: 05-19-2020 End: 05-19-2020 Subsequent hospital visit by physician Cl Mckeon [facility] Comment on above: Screening for cervic al cancer Start: 07-21-2019 End: 07-23-2019 Subsequent hospital visit by physician [facility] Mammography Comment on above: Breast cancer screen ing by mammogram Start: 03-17-2016 End: 04-28-2018 Patient encounter status [facility] [employer] Procedures Date Procedure Procedure Detail Performing Clinician Start: 12-13-2022 Screening mammograph y bi 2-view breast inc cad Kathrin Newton EDI PROGRAMMER - CNM Work Phone: Start: 10-10-2021 Screening mammograph y bi 2-view breast inc cad Kathrin Newton EDI PROGRAMMER - CNM Work Phone: Start: 05-24-2021 Microscopic observat ion [Identifier] in Cervix by Cyto stain [facility] Start: 10-07-2020 Screening mammograph y bi 2-view breast inc cad Kathrin Newton EDI PROGRAMMER - CNM Work Phone: Start: 07-21-2019 Screening digital br east tomosynthesis bi Kathrinmanuel Newton Work Phone: Start: 09-11-[address] [facility] Plan of Treatment Date Care Activity Detail Author Start: 06-05-2028 Lipid [facility] Start: 09-11-2026 Colon cancer screen colonoscopy Colon cancer screen colonoscopy [facility] Work Phone: Start: 09-11-2026 Screening for malign ant neoplasm of colon [facility] Start: 05-24-2026 Screening for malign ant neoplasm of cervix [facility] Start: 01-29-2025 Lipid panel [facility] Start: 12-13-2024 Screening for malign ant neoplasm of breast Breast cancer screen [facility] Start: 11-19-2024 Depression Screen Depression Screen [facility] Start: 08-12-2024 End: 08-12-2024 Patient encounter procedure 08/12/2024 2:45 PM EST Office Visit [facility] Part [address] [place] [id number] Kathrin Newton, EDI PROGRAMMER - CNM [address] [place] [address] [address] [place] [address] PAP [facility] Part [facility] Comment on above: PAP Start: 06-20-2024 End: 06-20-2024 Patient encounter procedure 06/20/2024 10:40 AM EST Office Visit Cl Mckeon MD [address] [place] [address] Cl Mckeon MD [address] [facility], [place] [address] ANNUAL WELLNESS Cl Mckeon MD Comment on above: ANNUAL WELLNESS Start: 05-24-2024 Screening for malign ant neoplasm of cervix Pap smear [facility] Start: 05-06-2024 DTaP/Tdap/Td vaccine (4 - Tdap) DTaP/Tdap/Td vaccine (4 - Tdap) [facility] Start: 04-08-2024 Lipid screen [facility] screen [facility] Work Phone: Start: 10-11-2023 Screening for malign ant neoplasm of breast Breast cancer screen [facility] [employer] Start: 07-17-2023 End: 07-17-2023 Patient encounter procedure 07/17/2023 Office Visit Obstetrics and Gynecology Kathrin Newton, EDI PROGRAMMER - CN [address] [facility] [address] [place] [address] [facility] Part of [facility] Start: 05-27-2023 Lipid panel Lipids [facility] [employer] Start: 05-23-2023 End: 05-23-2023 Patient encounter procedure 05/23/2023 Office Visit Internal Medicine Cl Mckeon MD [address] [facility], [place] [address] lC Mckeon MD Start: 05-19-2023 Depression Screen Depression Screen [facility] [employer] Start: 05-19-2023 Screening for malign ant neoplasm of cervix Cervical cancer screen [employer] Work Phone: Start: 02-09-2023 COVID-19 Vaccine ( season) COVID-19 Vaccine ( season) [facility] Start: 01-09-2023 Influenza vaccination Flu vaccine (# 1) [facility] [employer] Start: 10-07-2022 Screening for malign ant neoplasm of breast Breast cancer screen [employer] Work Phone: Start: 05-17-2022 End: 05-17-2022 Patient encounter procedure 05/17/2022 Office Visit Internal Medicine Cl Mckeon MD [address] [facility], [facility] [place] [address] Cl Mckeon MD Start: 08-10-2021 COVID-19 Vaccine (3 - Booster for Vicenta series) COVID-19 Vaccine (3 - Booster for Vicenta series) [facility] Start: 07-21-2021 Breast cancer screen Breast cancer s char [facility] Work Phone: Start: 07-21-2021 Depression Screen Depression Screen [facility] Start: 07-21-2021 Screening for malign ant neoplasm of breast Breast cancer screen [place], [place] Start: 05-24-2021 End: 05-24-2021 Office Visit 05/24/2021 Office Visit Obstetrics and Gynecology Kathrin Newton, VANESA - PAULINE [address] [facility] [address] [place] [address] [facility] Start: 2021 Respiratory Syncytia l Virus (RSV) or age 60 yrs+ (1 - 1-dose 60+ series) Respiratory Syncytial Virus (RSV) or age 60 yrs+ (1 - 1-dose 60+ series) [facility] Start: 04-13-2021 Thyroid stimulating hormone measurement [facility] Start: 04-13-2021 TSH Qn TSH testing [place], [place] Start: 03-12-2021 Screening for malign ant neoplasm of cervix Cervical cancer screen [place], [place] Start: 01-29-2021 Creatinine measurement [facility] Start: 01-29-2021 Potassium [Moles/vol ume] in Serum or Plasma Potassium [facility] Start: 01-29-2021 Potassium [facility] [place] [place] Start: 01-26-2021 End: 01-26-2021 Patient encounter procedure 01/26/2021 Office Visit Internal Medicine Cl Mckeon MD [address] [facility], [place] [address] Cl Mckeon MD Start: 07-21-2020 End: 07-21-2020 Office Visit 07/21/2020 Office Visit Internal Medicine Cl Mckeon MD [address] [facility], [facility] [place] [address] Cl Mckeon MD Start: 04-08-2020 Creatinine monitoring Creatinine mon itoring [facility] [employer] Work Phone: Start: 04-08-2020 Potassium monitoring Potassium monit oring [facility] [employer] Work Phone: Start: 04-08-2020 TSH testing TSH testing [facility] Work Phone: Start: 03-20-2020 Cervical cancer screen Cervical canc er screen [facility] Work Phone: Start: 02-10-2020 Influenza vaccination Flu vaccine (# 1) [facility] [place] Start: 10-06-2019 End: 10-06-2019 Office Visit 10/06/2019 Office Visit Internal Medicine Cl Mckeon MD [address] [place] [address], [facility] [place] [address] Cl Mckeon MD Start: 2006 Screening for malign ant neoplasm of colon [facility] [employer] Start: 1977 COVID-19 Vaccine (1) COVID-19 Vaccin e (1) [facility] [employer] Work Phone: End: 05-19-2020 Cytopathology procedure, preparation of smear, genital source [facility] Routine Screening for cervical cancer 1 Occurrences starting 05/19/2020 until 05/19/2020 [facility] [place] Comment on above: 1 Occurrences starti ng 05/19/2020 until 05/19/2020 Immunizations Immunization Date Immunization Notes Care Provider Fa cili 03-12-2023 influenza virus vaccine, unspecified formulation Cl Mckeon MD Work Phone: [facility] [employer] [facility] [employer] 03-12-2023 Influenza, injectabl e, Madin [place] Canine Kidney, quadrivalent with preservative Cl Mckeon MD Work Phone: [facility] 03-11-2022 influenza virus vaccine, unspecified formulation [facility] 06-15-2021 COVID-19, Pfizer Pur ple top, DILUTE for use, 12+ yrs, 30mcg/0.3mL dose [facility] Phone: 03-16-2021 influenza virus vaccine, unspecified formulation [facility] Phone: 03-16-2021 influenza, seasonal, injectable [facility] 08-27-2020 COVID-19, J&J, PF, 0 .5 mL [facility] Phone: 03-16-2020 Influenza, injectabl e, Madin Shruti Canine Kidney, preservative free, quadrivalent [facility] Phone: 07-03-[address] [facility] [place] 05-01-[address] [facility] 03-19-2019 seasonal influenza, intradermal, preservative free [facility] Phone: 02-27-2017 Influenza Vaccine, unspecified formulation [facility] 03-17-2016 influenza virus vaccine, unspecified formulation [facility] Phone: 03-13-2016 zoster vaccine, live [facility] 04-12-2015 influenza virus vaccine, unspecified formulation [facility] Phone: 05-06-2014 diphtheria, tetanus toxoids and acellular pertussis vaccine [facility] Phone: 04-24-2014 diphtheria and tetan us toxoids, adsorbed for pediatric use [facility] Phone: 04-13-2014 diphtheria and tetan us toxoids, adsorbed for pediatric use [facility] Phone: 04-03-2014 zoster vaccine, live [facility] Phone: 07-12-2013 zoster vaccine, live [facility] [employer] Work Phone: Payers Date Payer Category Payer Unknown [id number] 2014 Unknown [id number] 2014 Unknown [employer] xxxxxxxxx 2014-Present [phone] [address] [place] [address] xxxxxxxxx [id number] 1961 Unknown [id number] 3 1961 Unknown [id number] 1961 Unknown [id number] Social History Date Type Detail Facility Start: 05-19-2020 End: 02-28-2022 Tobacco smoking status NHIS Never smoker [employer] Phone: Start: 05-19-2020 End: 02-28-2022 Tobacco use and exposure Never used [employer] [facility] Lewis Start: 05-19-2020 End: 11-20-2023 Alcohol intake Current drinker of alcohol (finding) [employer] Phone: Start: 10-07-2019 End: 05-19-2022 History SDOH Financial [employer] [facility] Start: 10-07-2019 End: 05-19-2022 History SDOH Food Worry 1 [employer]story MD AJ Start: 10-07-2019 History SDOH Transpo rt Med 2 [employer] [facility] Start: 03-20-2017 Alcohol Comment social [facility] Work Phone: Start: 1960 Sex Assigned At Not on file Brian Dymant Phone: Start: 06-05-2023 End: 11-20-2023 History of Social function [employer] [facility] Start: 06-05-2023 End: 11-20-2023 Tobacco use panel [employer] [facility] How hard is it for y ou to pay for the very basics like food, housing, medical care, and heating Not hard at all [employer] [facility] (I/We) worried wheth er (my/our) food would run out before (I/we) got money to buy more. Never true [employer] [facility] At any time in the p ast 12 months, were you homeless or living in care home [including now]? 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 Documents on File Type Date Recorded Patient Lens Gauger Expl anation Advance Directives and Living Will Power of Truck Crane Operator Documents on File Type Date Recorded Patient Lens Gauger Expl 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 Assessments Diagnosis Screening for cervical cancer Screening for malignant neoplasm of the cervix Diagnosis Breast cancer screening by mammogram Reason for Referral Status Reason Specialty Diagnoses / Procedures Referre d By Contact Referred To Contact Closed Radiology Diagnoses Breast cancer screening by mammogram Procedures TOSIN DIGITAL SCREEN SELF REFERRAL W OR WO CAD Kathrin Cleveland APRN - CNM [address] [place] [address] [address] [place] [address] Status Reason Specialty Diagnoses / Procedures Referre d By Contact Referred To Contact Closed Radiology Diagnoses Screening mammogram, encounter for Procedures TOSIN JACQUE DIGITAL SCREEN Kathrin Cleveland APRN - CNM [address] [facility] [address] [place] [address] Specialty Diagnoses / Procedures Referred By Contac t Referred To Contact Radiology Diagnoses Screening mammogram, encounter for Procedures TOSIN JACQUE DIGITAL SCREEN BILATERAL Kathrin [place] APRN - CNM [address] [facility] [address] [place] [address] Referral ID Status Reason Start Date Expiration Date Visits Re quested Visits Authorized [id number] Closed 10/04/2021 10/04/2022 1 1 Referral ID Status Reason Start Date Expiration Date Visits Re quested Visits Authorized [id number] Closed 10/12/2022 10/12/2023 1 1 Additional Source Comments INFORMATION SOURCE (unrecogn ized section and content) DATE CREATED AUTHOR 04/14/2020 [facility] DATE CREATED AUTHOR AUTHOR'S ORGANIZ ATION 01/13/2024 [facility]acie [facility] pital Reason for Visit (unrecogniz ed section and content) Status Reason Specialty Diagnoses / Procedures Referre d By Contact Referred To Contact Closed Radiology Diagnoses Breast cancer screening by mammogram Procedures TOSIN DIGITAL SCREEN SELF REFERRAL W OR WO CAD BILATERAL Kathrin Newton APRN - CNM [address] [facility] [address] [place] [address] Status Reason Specialty Diagnoses / Procedures Referre d By Contact Referred To Contact Closed Radiology Diagnoses Screening mammogram, encounter for Procedures TOSIN JACQUE DIGITAL SCREEN BILATERAL Kathrin Newton APRN - CNM [address] [facility] [address] [place] [address] Specialty Diagnoses / Procedures Referred By Contac t Referred To Contact Radiology Diagnoses Screening mammogram, encounter for Procedures TOSIN JACQUE DIGITAL SCREEN BILATERAL Kathrin Newton APRN - CNM [address] [facility] [address] [place] [address] Referral ID Status Reason Start Date Expiration Date Visits Re quested Visits Authorized [id number] Closed 10/04/2021 10/04/2022 1 1 Referral ID Status Reason Start Date Expiration Date Visits Re quested Visits Authorized [id number] Closed 10/12/2022 10/12/2023 1 1 Care Teams (unrecognized sec tion and content) Shop Tech Relationship Specialty Start Date End Date Cl Mckeon MD [address] [facility], [place] [place] [address] PCP - General 05/07/12 Shop Tech Relationship Specialty Start Date End Date Cl Mckeon MD [address] [facility], [place] [place] [address] PCP - General 05/07/12 Shop Tech Relationship Specialty Start Date End Date Cl Mckeon MD [address] [facility], [place] [place] [address] PCP - General 05/07/12 FOR [...] BE BASED ON THE PRIMARY CLINICAL RECORDS. [facility] [employer], [facility]. provides no warranty or guarantee of the accuracy or completeness of information in this document.
== END 2024-02-19 10:25 | disposition home or self-care (01) ==
LOC: EC 10:24
PROVIDERS: Visit Provider Podiatrist Foot & Ankle Surgery
DX: M79.672 Pain in left foot (principal); S92.355G Nondisplaced fracture of fifth metatarsal bone, left foot, subsequent encounter for fracture with delayed healing
CPT/HCPCS: 73630